=== PATIENT | male | born 1950 | race Caucasian/White ===

== ENCOUNTER → 2017-08-26 | Outpatient (CLI) | payer MEDICARE, OTHER ==
[~2017-08-26] MED LIST: ASCO-191 PO; CHOL500045 PO; EPIN0.3P3 IM; GLUC-198 PO; MECL-111 PO; METR45GE7 TP; MILK175C PO; MULT-976 PO; OMEG300C PO; ONDA4TAB PO; SUMA100T33 PO; VALA100059 PO; VITA-200 PO; VITA-324 PO; ZINC30CA2 PO
--- NOTE | 2017-08-27 12:43 | RT HOLTER TEST ---
FACILITY: [facility] PATIENT NAME: TETE ROA : [id number] MR: [id number]: [id number] EXAM DATE: ORDERING PHYSICIAN: LILY MUÑOZ TECHNOLOGIST: Yenni Hook-up date: 2017-08-26 10:25:00 Duration: 24:22:00 Test Indications: Irregular Puls Medications: Vitamins Melatonin 076775 QRS complexes 2864 Ventricular ectopics which represent 2 % of total QRS comp. * Supraventricular ectopics which represent % of total QRS comp. * Paced QRS complexes which represent % of total QRS comp. VENTRICULAR ECTOPY 2798 Isolated 3 Bigeminal Cycles 30 Couplets 2 Runs 6 Beats in Runs 3 Beats LONGEST at 132 BPM at 21:42:26 2017-08-26 3 Beats FASTEST at 159 BPM at 08:09:26 2017-08-27 SUPRAVENTRICULAR ECTOPY * Isolated * Couplets * Runs * Beats in Runs * Beats LONGEST at * BPM at :: -- * Beats FASTEST at * BPM at :: -- HEART RATES 48 MIN at 07:06:28 2017-08-27 99 AVG 217 MAX at 09:39:31 2017-08-27 LONGEST RR 0.616 secs at 04:57:39 2017-08-27 S-T LEVELS Channel 1 -12.800 mm MIN at 10:25:00 2017-08-26 -12.800 mm MAX at 10:25:00 2017-08-26 Channel 2 -12.800 mm MIN at 10:25:00 2017-08-26 -12.800 mm MAX at 10:25:00 2017-08-26 Channel 3 -12.800 mm MIN at 10:25:00 2017-08-26 -12.800 mm MAX at 10:25:00 2017-08-26 The patient was in atrial flutter throughout the test. The heart rate ranged from 48 beats per minut e (bpm) to 217 bpm and there were no symptoms reported with the minimum or maximum rate. The average heart rate was 99 bpm. There were two asymp tomatic episodes of 2.1 seconds between QRS complexes. There was one symptom episode reported as "walking" with a heart rate of 130 bpm. There was occasional ventricular ectopy. Confirmed by MARLA CRUZ ([id number]) on 08/27/2017 12:43:17 PM Referred By: Overread By: MARLA CRUZ
== END ==
LOC: RESP 10:02
PROVIDERS: ATTEND Nurse Practitioner Psychiatric/Mental Health
DX: R00.8 Other abnormalities of heart beat (principal)
CPT/HCPCS: 93225; 93226

== ENCOUNTER → 2017-09-04 | Outpatient (CLI) | payer MEDICARE, OTHER ==
[2017-09-04 14:33] LABS: INR 1.17
== END ==
LOC: LAB 14:10
PROVIDERS: ATTEND Internal Medicine Cardiovascular Disease
DX: I48.91 Unspecified atrial fibrillation (principal)
CPT/HCPCS: 36415; 82310; 82374; 82435; 82565; 82947; 84132; 84295; 84520; 85027; 85610